=== PATIENT | female | born 1960 | race Caucasian/White ===

== ENCOUNTER 2016-12-28 07:17 | Day surgery (SDC) | payer OTHER ==
[~2016-12-28] VITALS: Ht 161.3 cm; Wt 58.5 kg
[~2016-12-28 07:17] MED LIST: ACET-66 PO; CALC-1009 PO; CISPLATIN IV; DEXA2TAB PO; DOCETAXEL IV; EMEND IV; FILG480D2 SQ; FentaNYL CITRATE-PF 100 MCG/2 ML VIAL IVP ONE; HYDR-4065 PO; HYDR25TA PO; MARIJUANA PO; MIDAZOLAM HCL 2 MG/2 ML VIAL IVP ONE; MULT-1103 PO; OMEP20 PO; PROCRIT IM; SUCR1TAB PO; VITAD1000 PO; [UNRECOGNIZED DRUG - OTHER] IV
[2016-12-28] MEDS ORDERED: RINGERS SOLUTION,LACTATED 500 ML IV ONE ×2 (07:28→08:00)
[2016-12-28] MEDS ORDERED: PHENYLEPHRINE HCL 2.5% 2 ML OPHTHALMIC SOLUTION ONE (07:28)
[2016-12-28] MEDS ORDERED: MOXIFLOXACIN HCL 0.5% 3 ML OPHTHALMIC SOLUTION ONE (07:28)
[2016-12-28] MEDS ORDERED: DICLOFENAC SODIUM 0.1% 2.5 ML OPHTHALMIC SOLUTION ONE (07:28)
[2016-12-28] MEDS ORDERED: TROPICAMIDE 1% 2 ML OPHTHALMIC SOLUTION ONE (07:28)
[2016-12-28] MEDS: PHENYLEPHRINE HCL 2.5% 2 ML OPHTHALMIC SOLUTION OS SCH ×2 (07:56→08:02)
[2016-12-28] MEDS: TROPICAMIDE 1% 2 ML OPHTHALMIC SOLUTION OS SCH ×2 (07:56→08:02)
[2016-12-28] MEDS ORDERED: MOXIFLOXACIN HCL 0.5% 3 ML OPHTHALMIC SOLUTION OS ONE (08:00)
[2016-12-28] MEDS ORDERED: DICLOFENAC SODIUM 0.1% 2.5 ML OPHTHALMIC SOLUTION OS ONE (08:00)
[2016-12-28] MEDS ORDERED: CANNABIS PO (08:25)
[2016-12-28] MEDS ORDERED: ONDA4 PO (08:25)
[2016-12-28] MEDS ORDERED: VITAD1000 PO (08:25)
[2016-12-28] MEDS ORDERED: DIPH25 PO (08:25)
[2016-12-28] MEDS ORDERED: DEXAMETHASONE SOD PHOS 4 MG/ML VIAL IVP ONE (21:34)
[2016-12-28] MEDS ORDERED: TETRACAINE HCL VISCOUS 0.5% 0.6 ML OPHTHALMIC SOLUTION OS ONE (21:34)
[2016-12-28] MEDS ORDERED: HYALURONATE SODIUM 12 MG/ML 0.8 ML SYRINGE IO ONE (21:34)
[2016-12-28] MEDS ORDERED: POVIDONE-IODINE 10% 15 ML SOLUTION UD TP ONE (21:34)
[2016-12-28] MEDS ORDERED: LIDOCAINE HCL/PF 1% 2 ML VIAL IM ONE (21:34)
[2016-12-28] MEDS ORDERED: HYALURONATE SOD/CHONDROITIN SOD 0.5 ML VIAL IO ONE (21:34)
[2016-12-28] MEDS ORDERED: EPINEPHrine 1:1,000 [1 MG/ML] AMP SQ ONE (21:34)
== END 2016-12-28 13:07 | disposition home or self-care (01) ==
LOC: SURGERY 07:17
PROVIDERS: ATTEND Specialist
DX: H26.9 Unspecified cataract (principal); C15.9 Malignant neoplasm of esophagus, unspecified; Z90.710 Acquired absence of both cervix and uterus
CPT/HCPCS: 66984; 93005; C1780; J0171; J1100; J2250; J3010; J3490 ×2; J7120; 99152; 99153

== ENCOUNTER 2017-01-25 08:32 | Day surgery (SDC) | payer OTHER ==
[~2017-01-25] VITALS: Ht 161.3 cm; Wt 55.5 kg
[~2017-01-25 08:32] MED LIST changes: -CALC-1009 PO; +CANNABIS PO; +DIPH25 PO; +ONDA4 PO; -[UNRECOGNIZED DRUG - OTHER] IV
[2017-01-25] MEDS ORDERED: RINGERS SOLUTION,LACTATED 500 ML IV ONE ×2 (09:00→10:01)
[2017-01-25] MEDS ORDERED: MOXIFLOXACIN HCL 0.5% 3 ML OPHTHALMIC SOLUTION OS ONE (09:00)
[2017-01-25] MEDS ORDERED: DICLOFENAC SODIUM 0.1% 2.5 ML OPHTHALMIC SOLUTION OS ONE (09:00)
[2017-01-25] MEDS ORDERED: MOXIFLOXACIN HCL 0.5% 3 ML OPHTHALMIC SOLUTION ONE (10:01)
[2017-01-25] MEDS ORDERED: DICLOFENAC SODIUM 0.1% 2.5 ML OPHTHALMIC SOLUTION ONE (10:01)
[2017-01-25] MEDS ORDERED: TROPICAMIDE 1% 2 ML OPHTHALMIC SOLUTION ONE (10:01)
[2017-01-25] MEDS ORDERED: PHENYLEPHRINE HCL 2.5% 2 ML OPHTHALMIC SOLUTION ONE (10:02)
[2017-01-25] MEDS ORDERED: OXYC1TAB66 PO (10:26)
[2017-01-25] MEDS: TROPICAMIDE 1% 2 ML OPHTHALMIC SOLUTION OS SCH ×2 (10:57→11:03)
[2017-01-25] MEDS: PHENYLEPHRINE HCL 2.5% 2 ML OPHTHALMIC SOLUTION OS SCH ×2 (10:57→11:03)
[2017-01-25] MEDS ORDERED: POVIDONE-IODINE 10% 15 ML SOLUTION UD TP ONE (17:25)
[2017-01-25] MEDS ORDERED: TETRACAINE HCL VISCOUS 0.5% 0.6 ML OPHTHALMIC SOLUTION OU ONE (17:25)
[2017-01-25] MEDS ORDERED: LIDOCAINE HCL/PF 1% 2 ML VIAL IM ONE (17:25)
== END 2017-01-25 14:30 | disposition home or self-care (01) ==
LOC: SURGERY 08:32
PROVIDERS: ATTEND Specialist
DX: T85.22XA Displacement of intraocular lens, initial encounter (principal); K21.9 Gastro-esophageal reflux disease without esophagitis; D64.9 Anemia, unspecified; F12.90 Cannabis use, unspecified, uncomplicated; E46 Unspecified protein-calorie malnutrition; Z90.710 Acquired absence of both cervix and uterus; Z98.890 Other specified postprocedural states; Z85.01 Personal history of malignant neoplasm of esophagus; Y83.8 Other surgical procedures as the cause of abnormal reaction of the patient, or of later complication, without mention of misadventure at the time of the procedure; Y92.9 Unspecified place or not applicable
CPT/HCPCS: 66825; J2250; J3010; J3490; J7120